=== PATIENT | male | born 1940 | race Caucasian/White ===

== ENCOUNTER 2021-01-11 17:51 | Emergency (ER) | payer OTHER ==
[~2021-01-11] VITALS: Ht 175.3 cm; Wt 88.5 kg
[2021-01-11 21:30] VITALS: BP 144/64
== END 2021-01-11 22:10 | disposition home or self-care (01) ==
LOC: ER 17:51
DX: G44.209 Tension-type headache, unspecified, not intractable (principal); I10 Essential (primary) hypertension; E78.5 Hyperlipidemia, unspecified; Z87.891 Personal history of nicotine dependence
CPT/HCPCS: 70450

== ENCOUNTER 2023-10-03 11:17 | Emergency (ER) | payer OTHER ==
[~2023-10-03] VITALS: Ht 175.3 cm; Wt 98.1 kg
[2023-10-03 13:16] LABS: Basophils # (auto) 0.1 10 ^3/uL (0-0.2); Basophils % (auto) 0.6 % (0.0-2.0); Eosinophils # (auto) 0.1 10 ^3/uL (0-0.8); Eosinophils % (auto) 1.3 % (0.0-7.0); Hematocrit 46.2 % (41.0-53.0); Hemoglobin 16.1 g/dL (13.5-17.5); Lymphocytes # (auto) 1.7 10 ^3/uL (0.4-5.4); Mean Corpuscular Hemoglobin 32.1 pg (28.0-32.0); Mean Corpuscular Hgb Conc. 34.8 g/dL (32.0-36.0); Mean Corpuscular Volume 92.3 fL (80.0-100.0); Monocytes # (auto) 0.8 10 ^3/uL (0-1.3); Monocytes % (auto) 7.6 % (0.0-12.0); Neutrophils # (auto) 8.1 10 ^3/uL (1.6-8.6); Neutrophils % (auto) 74.5 % (37.0-80.0); Red Blood Cells 5.01 10^6/uL (4.5-5.90); Red Cell Distribution Width 13.4 % (11.8-14.3); White Blood Cell 10.9 10^3/uL (4.4-10.8)
[2023-10-03 13:35] LABS: Alanine Aminotransferase 18 U/L (7-40); Albumin 4.6 g/dL (3.2-4.8); Alkaline Phosphatase 63 U/L (46-116); Anion Gap 8 (5-15); Aspartate Aminotransferase 26 U/L (13-40); BUN/Creatinine Ratio 6.4 (10.0-20.0); Bilirubin, Total 0.8 mg/dL (0.2-1.0); Blood Urea Nitrogen 7 mg/dL (9-23); Calcium 9.8 mg/dL (8.5-10.1); Carbon Dioxide 26 mmol/L (20-30); Chloride 103 mmol/L (98-107); Glucose 104 mg/dL (74-106); Potassium 3.9 mmol/L (3.5-5.1); Sodium 137 mmol/L (136-145); Total Protein 7.3 g/dL (5.7-8.2)
[2023-10-03 13:49] LABS: Erythrocyte Sedimentation Rate 13 mm/hr (0-20)
[2023-10-03] MEDS: IOHEXOL 350 MG/ML 100ML IJ ONE (15:53)
[2023-10-03] MEDS: FUROSEMIDE 40 MG/4 ML VIAL IV ONE (16:45)
[2023-10-03 19:31] VITALS: BP 108/63; PULSE 90; RESP 18; TEMP 98; O2SAT 95
== END 2023-10-03 20:04 | disposition home or self-care (01) ==
LOC: ER 11:17
DX: R60.9 Edema, unspecified (principal); R59.0 Localized enlarged lymph nodes; R91.1 Solitary pulmonary nodule; R93.89 Abnormal findings on diagnostic imaging of other specified body structures; E78.5 Hyperlipidemia, unspecified; Z98.890 Other specified postprocedural states
CPT/HCPCS: 36415; 71275; 80053; 84484; 85025; 85379; 85652; 86141; 93970; 99285; Q9967